=== PATIENT | male | born 1945 | race Caucasian/White ===

== ENCOUNTER 2017-04-08 08:49 | Outpatient (CLI) | payer MEDICARE, OTHER ==
[2017-04-08 13:08] LABS: BASOPHILS # (AUTO) 0.1 10^3/uL (0.0-0.1); EOSINOPHILS # (AUTO) 0.3 10^3/uL (0.0-0.7); EOSINOPHILS % (AUTO) 3.5 %; HCT - HEMATOCRIT 37.4 % (42.0-52.0); LYMPHOCYTES # (AUTO) 2.8 10^3/uL (1.5-3.5); LYMPHOCYTES % (AUTO) 34.7 %; MEAN CORPUSCULAR HEMOGLOBIN 31.7 pg (27.0-31.0); MEAN CORPUSCULAR HGB CONC 34.9 g/dL (32.0-36.0); MEAN CORPUSCULAR VOLUME 90.7 fL (80.0-94.0); MEAN PLATELET VOLUME 8.4 fL (7.4-11.4); MONOCYTES # (AUTO) 0.9 10^3/uL (0.0-1.0); MONOCYTES % (AUTO) 10.9 %; NEUTROPHILS % (AUTO) 49.9 %; NUCLEATED RED BLOOD CELLS AUTO 0.1 /100WBC; RED BLOOD COUNT 4.12 10^6/uL (4.70-6.10); RED CELL DISTRIBUTION WIDTH 12.6 % (12.0-15.0); UNCORRECTED WHITE BLOOD COUNT 7.9 x10^3/uL; WHITE BLOOD COUNT 7.9 x10^3/uL (4.8-10.8)
[2017-04-08 13:22] LABS: HEMOGLOBIN A1C 0.51 g/dL
[2017-04-08 13:54] LABS: ALBUMIN/GLOBULIN RATIO 1.6 (1.0-2.2); BILIRUBIN,TOTAL 0.8 mg/dL (0.2-1.0); BUN - BLOOD UREA NITROGEN 15 mg/dL (6-20); CALCIUM 9.1 mg/dL (8.5-10.3); CARBON DIOXIDE - CO2 25 mmol/L (21-32); CHLORIDE 102 mmol/L (101-111); CHOL/HDL RATIO 3.9 (<5.0); CHOLESTEROL 177 mg/dL; CREATININE 1.2 mg/dL (0.6-1.2); GFR - MDRD 60 (>89); GLUCOSE 116 mg/dL (70-100); HDL CHOLESTEROL 45 mg/dL; LDL/HDL RATIO 2.4 (<3.6); POTASSIUM 4.2 mmol/L (3.5-5.0); SODIUM 134 mmol/L (135-145); TOTAL PROTEIN 6.7 g/dL (6.7-8.2); TRIGLYCERIDES 132 mg/dL; VLDL CHOLESTEROL 26 mg/dL
== END 2017-04-08 08:50 ==
LOC: LAB.WCP 08:49
PROVIDERS: ATTEND Family Medicine
DX: I25.10 Atherosclerotic heart disease of native coronary artery without angina pectoris (principal); R73.01 Impaired fasting glucose; Z12.5 Encounter for screening for malignant neoplasm of prostate
CPT/HCPCS: 36415; 80053; 80061; 82043; 83036; 85025; G0103; 84153

== ENCOUNTER 2017-07-12 13:54 | Outpatient (CLI) | payer MEDICARE, OTHER ==
--- NOTE | 2017-07-12 17:47 | XRAY Report ---
DATE OF SERVICE: 07/12/2017 THREE VIEW RIGHT KNEE: 07/12/2017 CLINICAL INDICATION: Knee pain. FINDINGS: AP, lateral, sunrise views of the right knee demonstrate no evidence of fracture or dislocation. The joint spaces are preserved. No effusion is present. IMPRESSION: NORMAL RIGHT KNEE. TD: 07/12/2017 18:46
== END 2017-07-12 13:55 | disposition home or self-care (01) ==
LOC: DI 13:54
PROVIDERS: ATTEND Physician Assistant Medical
DX: M25.561 Pain in right knee (principal)

== ENCOUNTER 2017-09-20 09:13 | Outpatient (CLI) | payer MEDICARE, OTHER ==
--- NOTE | 2017-09-20 14:53 | MRI Report ---
EXAM: RIGHT KNEE MRI WITHOUT CONTRAST EXAM DATE: 09/20/2017 10:07 AM. CLINICAL HISTORY: Right anterior knee pain. Other synovitis and tenosynovitis, right knee. COMPARISON: None. TECHNIQUE: Multiplanar, multisequence T1-weighted and fluid-sensitive sequences of the knee without c ontrast. Other: None. FINDINGS: Bones: Small amount of subjacent marrow edema at the lateral patellar facet. 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 Some mild grade 2-3 chondromalacia at the medial compartment. Lateral compartment is spared. Medial Meniscus: The medial meniscus is intact. Lateral Meniscus: The lateral meniscus is intact. Cruciate Ligaments: The anterior and posterior cruciate ligaments are intact. Collateral Ligaments: The medial collateral and lateral collateral ligamentous structures are intact. Tendons: The quadriceps, patellar, semimembranosus, and popliteus tendons are unremarkable. Musculature: No edema or fatty atrophy. Other: No effusion. No popliteal cyst. No loose bodies. The medial and lateral retinacula are intact. There is a small amount of subcutaneous edema anterior to the patellar tendon. IMPRESSION: 1. Small amount of marrow edema at the lateral patellar facet, associated with some grade 3-4 chondro malacia. 2. Some grade 2-3 chondromalacia medial compartment, lateral compartment is spared. 3. Menisci, cruciates and collaterals are unremarkable. 4. Small amount of subcutaneous edema seen anterior to the patellar tendon. [facility] MUSCULOSKELETAL RADIOLOGY SECTION Referring Provider Line: [phone] SITE ID: [id number]
== END 2017-09-20 09:14 | disposition home or self-care (01) ==
LOC: DI 09:13
PROVIDERS: ATTEND Orthopaedic Surgery
DX: M94.261 Chondromalacia, right knee (principal)

== ENCOUNTER 2017-12-06 10:22 | Outpatient (CLI) | payer MEDICARE, OTHER | END 2017-12-06 10:23 | disposition critical access hospital (66) | LOC: EMS 10:22 | PROVIDERS: ATTEND Surgery | DX: R41.0 Disorientation, unspecified (principal); R42 Dizziness and giddiness; R11.0 Nausea | CPT/HCPCS: A0425; A0427 ==

== ENCOUNTER 2017-12-06 10:44 | Emergency (ER) | payer MEDICARE, OTHER ==
[2017-12-06] MEDS ORDERED: SODIUM CHLORIDE 0.9% 1,000 ML IV ONE ×2 (10:50→11:15)
--- NOTE | 2017-12-06 11:14 | ED Physician Documentation ---
History of Present Illness - Stated complaint Stated Complaint: WEAKNESS / CONFUSED - Additonal information Additional information: hx from pt this AM was very weak and wobbly feel to his knees when he tried to walk no injury denies fever denies SALES denies CP denies AP denies cough denies NVD denies blood in BM denies dysuria denies recent med changes or taking too many per EMS orthostatic and BP dropped from 130-80 they gave 1 L NS already Review of Systems Constitutional: denies: Fever, Chills Throat: denies: Sore throat Cardiac: denies: Chest pain / pressure Respiratory: denies: Dyspnea GI: denies: Abdominal Pain, Nausea, Vomiting, Diarrhea, Bloody / black stool : denies: Dysuria Neurologic: reports: Generalized weakness, Near syncope, Altered mental status ( was not making sense per SO). denies: Focal weakness, Numbness, Headache, Head injury Endocrine: denies: Easy bruising / bleeding Immunocompromised: denies: Immunocompromised PD PAST MEDICAL HISTORY - Past Medical History Past Medical History: Yes Cardiovascular: Hypertension, High cholesterol Respiratory: None Neuro: None Endocrine/Autoimmune: HyPOthyroidism GI: None : None HEENT: None Psych: Depression Musculoskeletal: None Derm: None - Past Surgical History Past Surgical History: No - Present Medications Home Medications: Ambulatory Orders Medication Instructions Recorded Confirmed Aspirin 81 mg PO DAILY 12/06/17 12/06/17 Cholecalciferol (Vitamin D3) 1,000 unit PO 12/06/17 [Vitamin D3] FLUoxetine [PROzac] 20 mg PO DAILY 12/06/17 12/06/17 Levothyroxine [Synthroid] 75 mcg PO QDAC 12/06/17 12/06/17 Lisinopril 2.5 mg PO 12/06/17 Loratadine 10 mg PO 12/06/17 Metoprolol Tartrate 50 mg PO 12/06/17 Multivitamin [Multivitamins] 12/06/17 Oil Of Oregano 1 tab ORAL 12/06/17 [place]-3/Dha/Epa/Fish Oil [Fish Oil 1 each PO 12/06/17 1,000 mg Softgel] Saw [place] Fruit [Saw [place]] 550 mg PO 12/06/17 Simvastatin 40 mg PO 12/06/17 Ubidecarenone [Co Q-10] 200 mg PO 12/06/17 - Allergies Allergies/Adverse Reactions: Allergies Allergy/AdvReac Type Severity Reaction Status Date / Time No Known Drug Allergies Allergy Verified 12/06/17 10:54 - Social History Does the pt smoke?: No Smoking Status: Never smoker Does the pt drink ETOH?: Yes Does the pt have substance abuse?: No - Immunizations Immunizations are current?: No Immunizations: TDAP >10years/unknown - POLST Patient has POLST: No PD ED PE NORMAL - Vitals Vital signs reviewed: Yes - General General: Alert and oriented X 3 - HEENT HEENT: PERRL - Neck Neck: Supple, no meningeal sign - Cardiac Cardiac: RRR - Respiratory Respiratory: No respiratory distress, Clear bilaterally - Abdomen Abdomen: Soft, Non tender - Derm Derm: Normal color - Extremities Extremities: No deformity - Neuro Neuro: Alert and oriented X 3, 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, No motor deficit, No sensory deficit, Normal speech, Other (NIHSS zero) Results - Vitals Vitals: Vital Signs - 24 hr 12/06/17 12/06/17 12/06/17 10:52 11:37 12:03 Temperature 36.7 C Heart Rate 59 L 85 Heart Rate [ 66 Sitting] Heart Rate [ 63 Standing] Heart Rate [ 62 Supine] Respiratory 16 16 Rate Blood Pressure 142/69 H 130/71 Blood Pressure 130/67 [Sitting] Blood Pressure 125/67 [Standing] Blood Pressure 121/83 H [Supine] O2 Saturation 95 97 12/06/17 14:01 Temperature Heart Rate 67 Heart Rate [ Sitting] Heart Rate [ Standing] Heart Rate [ Supine] Respiratory 16 Rate Blood Pressure 132/77 H Blood Pressure [Sitting] Blood Pressure [Standing] Blood Pressure [Supine] O2 Saturation 97 Oxygen O2 Source Room air - EKG (time done) 1058 Rate: Rate (enter#) (61) Rhythm: NSR [place]: Normal Intervals: Normal MD Ischemia: Normal ST segments - Labs Labs: Laboratory Tests 12/06/17 12/06/17 12/06/17 11:00 11:25 11:25 WBC 6.0 RBC 3.93 L Hgb 12.8 L Hct 36.8 L MCV 93.5 MCH 32.5 H MCHC 34.8 RDW 12.5 Plt Count 215 MPV 7.7 Neut # (Auto) 3.6 Lymph # (Auto) 1.6 [place] # (Auto) 0.5 Eos # (Auto) 0.1 Baso # (Auto) 0.0 Absolute Nucleated RBC 0.00 Nucleated RBC % 0.0 Sodium 131 L Potassium 4.5 Chloride 101 Carbon Dioxide 25 Anion Gap 5.0 L BUN 14 Creatinine 1.4 H Estimated GFR (MDRD) 50 L Glucose 128 H Lactic Acid Calcium 8.5 Total Bilirubin 1.0 AST 32 ALT 30 Alkaline Phosphatase 45 Troponin I Total Protein 6.8 Albumin 3.7 Globulin 3.1 Albumin/Globulin Ratio 1.2 Lipase 43 Urine Color YELLOW Urine Clarity CLEAR Urine pH 8.0 H Ur Specific [place] 1.010 Urine Protein TRACE Urine Glucose (UA) NEGATIVE Urine Ketones NEGATIVE Urine Occult Blood NEGATIVE Urine Nitrite NEGATIVE Urine Bilirubin NEGATIVE Urine Urobilinogen 0.2 (NORMAL) Ur Leukocyte Esterase NEGATIVE Ur Microscopic Review NOT INDICATED Urine Culture Comments NOT INDICATED 12/06/17 12/06/17 11:25 11:25 WBC RBC Hgb Hct MCV MCH MCHC RDW Plt Count MPV Neut # (Auto) Lymph # (Auto) [place] # (Auto) Eos # (Auto) Baso # (Auto) Absolute Nucleated RBC Nucleated RBC % Sodium Potassium Chloride Carbon Dioxide Anion Gap BUN Creatinine Estimated GFR (MDRD) Glucose Lactic Acid 1.5 Calcium Total Bilirubin AST ALT Alkaline Phosphatase Troponin I < 0.04 Total Protein Albumin Globulin Albumin/Globulin Ratio Lipase Urine Color Urine Clarity Urine pH Ur Specific [place] Urine Protein Urine Glucose (UA) Urine Ketones Urine Occult Blood Urine Nitrite Urine Bilirubin Urine Urobilinogen Ur Leukocyte Esterase Ur Microscopic Review Urine Culture Comments - Rads (name of study) CTH Radiology: See rad report (old lacunar infarct, no mass shift bleed) PD MEDICAL DECISION MAKING - ED course ED course: 1130 AM pt developed SALES and vision changes / hard to see from L eye but not a field cut ordered CTH (neg) sx self resolved EKG and trop s ischemia CTHH neg not anemic nl lytes lungs clear no cough so doubt pna UA neg for infection pt states no med changes was orthostatic so gave IVF pt better after IVF, not orthostatic and feels better will dc - Sepsis Event Vital Signs: Vital Signs - 24 hr 12/06/17 12/06/17 12/06/17 10:52 11:37 12:03 Temperature 36.7 C Heart Rate 59 L 85 Heart Rate [ 66 Sitting] Heart Rate [ 63 Standing] Heart Rate [ 62 Supine] Respiratory 16 16 Rate Blood Pressure 142/69 H 130/71 Blood Pressure 130/67 [Sitting] Blood Pressure 125/67 [Standing] Blood Pressure 121/83 H [Supine] O2 Saturation 95 97 12/06/17 14:01 Temperature Heart Rate 67 Heart Rate [ Sitting] Heart Rate [ Standing] Heart Rate [ Supine] Respiratory 16 Rate Blood Pressure 132/77 H Blood Pressure [Sitting] Blood Pressure [Standing] Blood Pressure [Supine] O2 Saturation 97 Oxygen O2 Source Room air Departure - Departure Disposition: Home, Self Care Clinical Impression: Orthostatic hypotension Condition: Good Instructions: ED Hypotension Orthostatic Follow-Up: Sreekanth Shah DO [Primary Care Provider] - Comments: Your work up was very reassuring The CT of your brain showed no acute process Your heart checked out OK Your labs were fine - mildly anemic but the same as your prior results, your sodium was slightly low but not enough to make you feel so weak, and you have some renal insufficiency which is probably due to you being dehydrated And you felt better after IV fluids I suspect you were dehydrated - it has been very hot recently and you need to drink a lot of fluid I think it is safe for you to go home Please rest and drink fluids Follow up with your PMD Saturday for a recheck blood pressure and labs and to see how you are doing Return if worse or new symptoms develop over the weekend
[2017-12-06 11:36] LABS: BASOPHILS % (AUTO) 0.8 %; EOSINOPHILS # (AUTO) 0.1 10^3/uL (0.0-0.7); EOSINOPHILS % (AUTO) 2.4 %; HGB - HEMOGLOBIN 12.8 g/dL (14.0-18.0); LYMPHOCYTES # (AUTO) 1.6 10^3/uL (1.5-3.5); LYMPHOCYTES % (AUTO) 27.3 %; MEAN CORPUSCULAR HEMOGLOBIN 32.5 pg (27.0-31.0); MEAN CORPUSCULAR HGB CONC 34.8 g/dL (32.0-36.0); MEAN CORPUSCULAR VOLUME 93.5 fL (80.0-94.0); MEAN PLATELET VOLUME 7.7 fL (7.4-11.4); MONOCYTES # (AUTO) 0.5 10^3/uL (0.0-1.0); MONOCYTES % (AUTO) 8.5 %; NEUTROPHILS # (AUTO) 3.6 10^3/uL (1.5-6.6); PLT - PLATELET COUNT 215 10^3/uL (130-450); RED BLOOD COUNT 3.93 10^6/uL (4.70-6.10); RED CELL DISTRIBUTION WIDTH 12.5 % (12.0-15.0)
[2017-12-06 11:50] LABS: ALBUMIN 3.7 g/dL (3.2-5.5); ALBUMIN/GLOBULIN RATIO 1.2 (1.0-2.2); CALCIUM 8.5 mg/dL (8.5-10.3); CREATININE 1.4 mg/dL (0.6-1.2); TOTAL PROTEIN 6.8 g/dL (6.7-8.2)
[2017-12-06 12:05] LABS: BILIRUBIN,URINE NEGATIVE (NEGATIVE); GLUCOSE, URINE (UA) NEGATIVE (NEGATIVE); KETONES,URINE (UA) NEGATIVE (NEGATIVE); LEUKOCYTE ESTERASE, URINE NEGATIVE (NEGATIVE); NITRITE,URINE NEGATIVE (NEGATIVE); OCCULT BLOOD,URINE NEGATIVE (NEGATIVE); PROTEIN,URINE TRACE mg/dL (NEGATIVE); UROBILINOGEN,URINE 0.2 (NORMAL) E.U./dL (NORMAL)
[2017-12-06 12:19] LABS: CLARITY,URINE CLEAR (CLEAR)
--- NOTE | 2017-12-06 13:17 | CT Report ---
Procedure Date: 12/06/2017 Accession Number: [id number] / [id number] Procedure: CT - Head W/O CPT Code: FULL RESULT: EXAM: CT HEAD EXAM DATE: 12/06/2017 01:00 PM. CLINICAL HISTORY: SALES vision changes near syncope. COMPARISON: None. TECHNIQUE: Multiaxial CT images were obtained from the foramen magnum to the vertex. Reformats: Coronal. IV contrast: None. In accordance with CT protocol optimization, one or more of the following dose reduction techniques were utilized for this exam: automated exposure control, adjustment of mA and/or KV based on patient size, or use of iterative reconstructive technique. FINDINGS: Parenchyma: There is a left basal ganglia round hypodensity. Negative for acute intracranial hemorrhage. There is no mass effect or midline shift. Extraaxial Spaces: Normal for age. No subdural or epidural collections identified. Ventricles: Normal in size and position. Sinuses and Orbits: Imaged paranasal sinuses, orbits, and mastoids show no significant abnormality. Bones: No evidence of fracture or calvarial defect. Other: None. IMPRESSION: 1. Probable old left basal ganglia lacunar infarct. 2. Negative for acute hemorrhage, mass effect or localizing edema. [facility]
[2017-12-06 14:02] VITALS: BP 132/77
== END 2017-12-06 15:30 | disposition home or self-care (01) ==
LOC: EDUNIT# → ED 10:44
DX: I95.1 Orthostatic hypotension (principal); E86.0 Dehydration; I10 Essential (primary) hypertension; E78.00 Pure hypercholesterolemia, unspecified; E03.9 Hypothyroidism, unspecified; R73.01 Impaired fasting glucose; I25.10 Atherosclerotic heart disease of native coronary artery without angina pectoris; E78.5 Hyperlipidemia, unspecified; N52.9 Male erectile dysfunction, unspecified
CPT/HCPCS: 36415; 70450; 80053; 80061; 81001; 81003; 83036; 83605; 83690; 84443; 84484; 85025; 87040; 87086; 93005; 96360; 96361; 99284

== ENCOUNTER 2017-12-06 11:46 | Outpatient (CLI) | payer MEDICARE, OTHER ==
[2017-12-06 12:21] LABS: CHOL/HDL RATIO 6.5 (<5.0); CHOLESTEROL 222 mg/dL; HDL CHOLESTEROL 34 mg/dL; LDL CHOLESTEROL,CALCULATED 142 mg/dL; LDL/HDL RATIO 4.2 (<3.6); VLDL CHOLESTEROL 46 mg/dL
[2017-12-06 12:43] LABS: HB2 TOTAL 13.4 g/dL; HEMOGLOBIN A1C 0.57 g/dL
== END 2017-12-06 11:47 | disposition home or self-care (01) ==
LOC: LAB 11:46
PROVIDERS: ATTEND Family Medicine
DX: R73.01 Impaired fasting glucose (principal); I25.10 Atherosclerotic heart disease of native coronary artery without angina pectoris; E03.9 Hypothyroidism, unspecified; E78.5 Hyperlipidemia, unspecified; N52.9 Male erectile dysfunction, unspecified
CPT/HCPCS: 36415; 80061; 83036; 83721; 84153; 84443

== ENCOUNTER 2017-12-17 09:34 | Outpatient (CLI) | payer MEDICARE, OTHER ==
--- NOTE | 2017-12-17 22:14 | MRI Report ---
Procedure Date: 12/17/2017 Accession Number: [id number] / [id number] Procedure: MRI - Brain W/O CPT Code: FULL RESULT: EXAM: MRI BRAIN WITHOUT CONTRAST EXAM DATE: 12/17/2017 11:03 AM. CLINICAL HISTORY: Previously presented with headaches, vision changes and near syncope. COMPARISON: CT head 12/06/2017. TECHNIQUE: Multiplanar, multisequence T1-weighted and fluid-sensitive MR sequences of the brain were performed. Sequences optimized for routine evaluation. Other: None. IV Contrast: None. FINDINGS: Diffusion weighted sequence shows no evidence for acute infarct. There is no mass, mass effect, midline shift or abnormal extraaxial fluid collection. Size and configuration of the ventricles are normal. There is chronic infarct in the periventricular left frontal lobe, left berrios radiata adjacent to the body of the left caudate, otherwise signal within the cortex and white matter appears unremarkable. Nonspecific T2 hyperintensity seen in the periventricular right centrum semiovale. Brainstem and cerebellum appear normal. Major intracranial flow voids appear normal. Globes, orbits, optic nerve sheath complex, optic chiasm, pituitary, cavernous sinus and Meckel's cave appear normal. Paranasal sinuses and mastoid air cells appear well aerated. Marrow signal and extracranial soft tissue appear normal. Craniocervical junction and visualized upper cervical cord appear unremarkable. IMPRESSION: 1. No acute infarct, intracranial hemorrhage, midline shift or hydrocephalus. 2. Chronic lacunar type infarct in the periventricular left frontal lobe and left berrios radiata. 3. Mild diffuse cerebral volume loss. [facility]
== END 2017-12-17 09:35 | disposition home or self-care (01) ==
LOC: DI 09:34
PROVIDERS: ATTEND Family Medicine
DX: G45.9 Transient cerebral ischemic attack, unspecified (principal)
CPT/HCPCS: 70551

== ENCOUNTER 2017-12-19 18:49 | Outpatient (CLI) | payer MEDICARE, OTHER ==
--- NOTE | 2017-12-20 08:04 | Ultrasound Report ---
Procedure Date: 12/19/2017 Accession Number: [id number] / [id number] Procedure: US - Carotid Doppler Complete CPT Code: FULL RESULT: EXAM: BILATERAL CAROTID AND VERTEBRAL ARTERY DUPLEX DOPPLER ULTRASOUND: EXAM DATE: 12/19/2017 07:48 PM CLINICAL HISTORY: TIA. COMPARISON: None. TECHNIQUE: Ramos-scale imaging, color Doppler, and duplex spectral Doppler were used to evaluate the carotid and vertebral arteries bilaterally. Static images were obtained. FINDINGS: Right common carotid artery intimal hyperplasia. Noncalcified plaque proximal to mid. Moderate amount of plaque at the right bulb with narrowing of the origin of the right ECA. Calcified and noncalcified plaque in the right ICA. The peak systolic velocities on the right side are not significantly elevated. Left common carotid artery has intimal hyperplasia. A large amount of calcified plaque is seen within the proximal to mid CCA. Calcified and noncalcified plaque in the distal CCA. Calcified plaque at the bulb. Calcified plaque at the origin of the left ECA. Noncalcified plaque proximal left ICA.. Peak systolic velocities are not significantly elevated Normal antegrade flow is present in bilateral vertebral arteries. VELOCITIES (cm/sec): Right: RCCA Prox: PSV 64.36 cm/sec. RCCA Dist: PSV 52.3 cm/sec, EDV 28 cm/sec. RECA: PSV 102 cm/sec. R Bulb: PSV 45.5 cm/sec, EDV 3 cm/sec, ICA/CCA ratio 0.9. JUS Prox: PSV 43.8 cm/sec, EDV 11.5 cm/sec, ICA/CCA ratio 0.8. JUS Mid: PSV 63.3 cm/sec, EDV 14 cm/sec, ICA/CCA ratio 1.2. JUS Dist: PSV 76.5 cm/sec, EDV 22.1 cm/sec, ICA/CCA ratio 1.5. RVA: PSV 41.8 cm/sec. RVA flow direction: Antegrade. Left: LCCA Prox: PSV 77.9 cm/sec. LCCA Dist: PSV 64.4 cm/sec, EDV 9.7 cm/sec. LECA: PSV 93.3 cm/sec. L Bulb: PSV 61.7 cm/sec, EDV 12.4 cm/sec, ICA/CCA ratio 1.0. LICA Prox: PSV 67.2 cm/sec, EDV 17.9 cm/sec, ICA/CCA ratio 1.0. LICA Mid: PSV 80.7 cm/sec, EDV 19 cm/sec, ICA/CCA ratio 1.3. LICA Dist: PSV 86.3 cm/sec, EDV 23.5 cm/sec, ICA/CCA ratio 1.3. LVA: PSV 78.4 cm/sec. LVA flow direction: Antegrade. ICA diameter stenosis: Right: <50% by velocity and <70% by NASCET criteria. Left: <50% by velocity and <70% by NASCET criteria. IMPRESSION: 1. Large amount of calcified and noncalcified plaque in the left common carotid artery extending into ECA and ICA. Recommend CTA or MRA for further evaluation. 2. In the right carotid artery there are no elevated carotid artery velocities to suggest hemodynamically significant stenosis. 3. In the left carotid artery there are no elevated carotid artery velocities to suggest hemodynamically significant stenosis. 4. Normal antegrade flow is present in bilateral vertebral arteries. [facility]
== END 2017-12-19 18:50 | disposition home or self-care (01) ==
LOC: DI 18:49
PROVIDERS: ATTEND Family Medicine
DX: G45.9 Transient cerebral ischemic attack, unspecified (principal)
CPT/HCPCS: 93880

== ENCOUNTER 2017-12-26 12:18 | Outpatient (CLI) | payer MEDICARE, OTHER ==
[2017-12-26] MEDS ORDERED: IOPAMIDOL-300 100 ML VIAL ONE (12:33)
[2017-12-26] MEDS ORDERED: IOPAMIDOL-300 100 ML VIAL IVP ONE (12:51)
--- NOTE | 2017-12-27 16:05 | CT Report ---
Procedure Date: 12/26/2017 Accession Number: [id number] / [id number] Procedure: CT - Neck Angio CPT Code: FULL RESULT: EXAM: CT ANGIOGRAM NECK EXAM DATE: 12/26/2017 12:41 PM. CLINICAL HISTORY: Carotid arterial disease, TIA. COMPARISON: No prior CTA. TECHNIQUE: Routine axial helical imaging was performed from the skull base through the aortic arch. Reconstructions: Routine multiplanar 3D MIP reconstructions. IV Contrast: ISOVUE 300 80mL. Evaluation of arterial stenosis is based on a NASCET method of measurement. In accordance with CT protocol optimization, one or more of the following dose reduction techniques were utilized for this exam: automated exposure control, adjustment of mA and/or KV based on patient size, or use of iterative reconstructive technique. FINDINGS: No focal flow-limiting stenosis at the origins of the great vessels at the top of the aortic arch. No flow-limiting proximal left subclavian artery stenosis. There may be mild stenosis of the proximally tortuous right subclavian artery. Focal atherosclerotic plaque is present at the right cervical vertebral artery origin. Associated luminal stenosis is mild. Otherwise unremarkable right cervical vertebral artery. Minimal to mild origin stenosis of the left cervical vertebral artery is also present where there is a small amount of focal atherosclerotic calcification, more distally this vessel appears unremarkable in the neck. Both cervical carotid arteries show scattered hard and soft plaque involving the common carotid and internal carotid segments and at the carotid bifurcations. There is, however, no evidence for acute abnormality or focal flow-limiting stenosis. No evidence for aneurysm or dissection flap. No intracranial vertebrobasilar insufficiency. 2 cm wide perforation of the anterior nasal septum. Minimal to mild paranasal sinus mucosal thickening. IMPRESSION: 1. Multifocal relatively mild atherosclerotic disease of the cervical carotid arteries without evidence for acute abnormality or flow-limiting stenosis. 2. Minimal to mild atherosclerotic stenosis at the origins of the cervical vertebral arteries. No acute abnormality, flow-limiting stenosis or intracranial vertebrobasilar insufficiency. 3. Minimal multifocal paranasal sinus mucosal thickening and anterior perforation of the nasal septum. [facility]
== END 2017-12-26 12:19 | disposition home or self-care (01) ==
LOC: DI 12:18
PROVIDERS: ATTEND Family Medicine
DX: G45.9 Transient cerebral ischemic attack, unspecified (principal); I77.9 Disorder of arteries and arterioles, unspecified
CPT/HCPCS: 70498; Q9967

== ENCOUNTER 2018-04-21 10:25 | Outpatient (CLI) | payer MEDICARE, OTHER | END 2018-04-21 10:26 | disposition home or self-care (01) | LOC: SC 10:25 | PROVIDERS: ATTEND Internal Medicine Pulmonary Disease | DX: G47.10 Hypersomnia, unspecified (principal); R06.83 Snoring; G47.8 Other sleep disorders | CPT/HCPCS: 99203; G0463; 99212 ==

== ENCOUNTER 2018-06-01 19:30 | Outpatient (CLI) | payer MEDICARE, OTHER | END 2018-06-01 19:31 | disposition home or self-care (01) | LOC: SC 19:30 | PROVIDERS: ATTEND Internal Medicine Pulmonary Disease | DX: G47.33 Obstructive sleep apnea (adult) (pediatric) (principal); G47.61 Periodic limb movement disorder | CPT/HCPCS: 95810 ==

== ENCOUNTER 2018-07-14 10:09 | Outpatient (CLI) | payer MEDICARE, OTHER | END 2018-07-14 10:10 | disposition home or self-care (01) | LOC: SC 10:09 | PROVIDERS: ATTEND Internal Medicine Pulmonary Disease | DX: G47.33 Obstructive sleep apnea (adult) (pediatric) (principal); G47.61 Periodic limb movement disorder | CPT/HCPCS: 99213; G0463; 99212 ==

== ENCOUNTER 2018-08-07 07:09 | Day surgery (SDC) | payer MEDICARE, OTHER ==
[2018-08-07] MEDS ORDERED: LACTATED RINGERS 1,000 ML IV ONE (08:03)
[2018-08-07] MEDS ORDERED: fentaNYL 250 MCG/5 ML VIAL IVP ONE (09:13)
[2018-08-07] MEDS ORDERED: MIDAZOLAM 2 MG/2 ML VIAL IVP ONE (09:13)
[2018-08-07 09:52] VITALS: BP 124/70
--- NOTE | 2018-08-07 10:17 | OPERATIVE REPORT ---
DATE OF SERVICE: 08/07/2018 Physician: Súal Guzman MD PREOPERATIVE DIAGNOSIS: Constipation. POSTOPERATIVE DIAGNOSIS: Normal colonoscopy. INDICATIONS FOR PROCEDURE: Patient is a 72-year-old man who presented complaining of a couple of months of constipation and decreased caliber stool. PROCEDURE IN DETAIL: The risks and benefits were explained. The patient agreed to the procedure. He was taken to the operating room, given sedation. Timeout was performed, and everyone in the room agreed to the procedure. We began by inserting a well-lubricated colonoscope into the anus, advanced into the cecum without difficulty. The appendiceal orifice was identified. The scope was then slowly withdrawn while insufflating the colon. No abnormalities were seen throughout the colon's entirety. Retroflexion was performed at the anal verge, and no abnormalities were seen there either. The colonoscope then completely withdrawn and procedure terminated. The patient was taken to recovery in stable condition. ESTIMATED BLOOD LOSS: Zero. COMPLICATIONS: None. SPECIMENS: None. PLAN: Repeat colonoscopy in 10 years. TD: 08/07/2018 09:24 [email or web address]
== END 2018-08-07 07:10 | disposition home or self-care (01) ==
LOC: SDS 07:09
PROVIDERS: ATTEND Surgery
PROC: 0DJD8ZZ Inspection of Lower Intestinal Tract, Via Natural or Artificial Opening Endoscopic (ICD-10-PCS; principal; 2018-08-07 08:15)
DX: K59.00 Constipation, unspecified (principal)
CPT/HCPCS: 45378; J3010; J7120

== ENCOUNTER 2018-09-16 12:56 | Outpatient (CLI) | payer MEDICARE, OTHER | END 2018-09-16 12:57 | disposition home or self-care (01) | LOC: SC 12:56 | PROVIDERS: ATTEND Internal Medicine Pulmonary Disease | DX: G47.33 Obstructive sleep apnea (adult) (pediatric) (principal) | CPT/HCPCS: 99213; G0463; 99212 ==

== ENCOUNTER 2018-11-19 21:21 | Emergency (ER) | payer MEDICARE, OTHER ==
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
--- NOTE | 2018-11-19 22:53 | XRAY Report ---
Reason: chest pain, dyspnea Procedure Date: 11/19/2018 Accession Number: [id number] / [id number] Procedure: XR - Chest 2 View X-Ray CPT Code: 06606 FULL RESULT: EXAM: CHEST RADIOGRAPHY EXAM DATE: 11/19/2018 10:24 PM. CLINICAL HISTORY: Chest pain, dyspnea. COMPARISON: CHEST 2 VIEW PA/LAT 09/24/2016 8:58 AM. TECHNIQUE: 2 views. FINDINGS: Lungs/Pleura: No localized infiltrate, consolidation, effusion, or pneumothorax. Mediastinum: Heart and mediastinal contours are unremarkable. Upper lobe vessels not distended. Other: Degenerative changes. IMPRESSION: No acute disease. RADIA
[2018-11-19 23:02] LABS: BASOPHILS % (AUTO) 0.3 %; EOSINOPHILS # (AUTO) 0.2 10^3/uL (0.0-0.7); EOSINOPHILS % (AUTO) 1.7 %; HGB - HEMOGLOBIN 12.5 g/dL (14.0-18.0); LYMPHOCYTES # (AUTO) 2.6 10^3/uL (1.5-3.5); LYMPHOCYTES % (AUTO) 22.9 %; MEAN CORPUSCULAR HEMOGLOBIN 31.9 pg (27.0-31.0); MEAN CORPUSCULAR HGB CONC 35.1 g/dL (32.0-36.0); MEAN CORPUSCULAR VOLUME 90.9 fL (80.0-94.0); MEAN PLATELET VOLUME 7.7 fL (7.4-11.4); MONOCYTES # (AUTO) 1.4 10^3/uL (0.0-1.0); MONOCYTES % (AUTO) 12.1 %; NEUTROPHILS # (AUTO) 7.3 10^3/uL (1.5-6.6); PLT - PLATELET COUNT 235 10^3/uL (130-450); RED BLOOD COUNT 3.92 10^6/uL (4.70-6.10); RED CELL DISTRIBUTION WIDTH 12.6 % (12.0-15.0); WHITE BLOOD COUNT 11.5 x10^3/uL (4.8-10.8)
[2018-11-19 23:12] LABS: CALCIUM 8.8 mg/dL (8.5-10.3); CREATININE 1.2 mg/dL (0.6-1.2)
[2018-11-20 00:07] VITALS: BP 146/76
== END 2018-11-20 00:10 | disposition home or self-care (01) ==
LOC: ED 21:21
DX: R07.9 Chest pain, unspecified (principal); I10 Essential (primary) hypertension
CPT/HCPCS: 36415; 71046; 80048; 84484; 85025; 93005; 99283; 99284

== ENCOUNTER 2018-12-16 11:27 | Observation (INO) | payer MEDICARE, OTHER ==
[2018-12-16 11:54] LABS: BASOPHILS # (AUTO) 0.1 10^3/uL (0.0-0.1); BASOPHILS % (AUTO) 0.6 %; EOSINOPHILS # (AUTO) 0.4 10^3/uL (0.0-0.7); EOSINOPHILS % (AUTO) 4.9 %; HGB - HEMOGLOBIN 12.5 g/dL (14.0-18.0); LYMPHOCYTES # (AUTO) 2.7 10^3/uL (1.5-3.5); LYMPHOCYTES % (AUTO) 32.7 %; MEAN CORPUSCULAR HEMOGLOBIN 31.8 pg (27.0-31.0); MEAN CORPUSCULAR HGB CONC 34.8 g/dL (32.0-36.0); MEAN CORPUSCULAR VOLUME 91.3 fL (80.0-94.0); MEAN PLATELET VOLUME 9.6 fL (7.4-11.4); MONOCYTES % (AUTO) 11.6 %; NEUTROPHILS # (AUTO) 4.2 10^3/uL (1.5-6.6); NEUTROPHILS % (AUTO) 49.7 %; PLT - PLATELET COUNT 249 10^3/uL (130-450); RED BLOOD COUNT 3.93 10^6/uL (4.70-6.10); WHITE BLOOD COUNT 8.4 x10^3/uL (4.8-10.8)
[2018-12-16 12:07] LABS: ALBUMIN 4.2 g/dL (3.2-5.5); ALBUMIN/GLOBULIN RATIO 1.6 (1.0-2.2); BILIRUBIN,TOTAL 0.8 mg/dL (0.2-1.0); CREATININE 1.3 mg/dL (0.6-1.2); TOTAL PROTEIN 6.8 g/dL (6.7-8.2)
--- NOTE | 2018-12-16 12:38 | CT Report ---
Reason: L side numbness Procedure Date: 12/16/2018 Accession Number: [id number] / [id number] Procedure: CT - HEAD WO CPT Code: FULL RESULT: EXAM: CT HEAD EXAM DATE: 12/16/2018 12:14 PM. CLINICAL HISTORY: L side numbness. Duration 1.5 hours. COMPARISON: NECK ANGIO 12/26/2017 12:36 PM . TECHNIQUE: Multiaxial CT images were obtained from the foramen magnum to the vertex. Reformats: Sagittal and coronal. IV contrast: None. In accordance with CT protocol optimization, one or more of the following dose reduction techniques were utilized for this exam: automated exposure control, adjustment of mA and/or KV based on patient size, or use of iterative reconstructive technique. FINDINGS: Parenchyma: No intraparenchymal hemorrhage. No evidence of mass, midline shift, or CT findings of acute infarction. Ramos-white differentiation is distinct. Diffuse chronic microangiopathic white matter changes are evident. 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 Extraaxial Spaces: Normal for age. No subdural or epidural collections identified. Ventricles: The ventricles and cortical sulci are enlarged, consistent with age-related tissue loss. Sinuses and orbits: Imaged paranasal sinuses, orbits, and mastoids show no significant abnormality. Bones: No evidence of fracture or calvarial defect. Other: None. IMPRESSION: 1. Generalized age-related cortical atrophic changes without evidence of acute intracranial abnormality. 2. 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 If there is clinical indication to further assess, consider MRI. RADIA
[2018-12-16 13:54] LABS: BILIRUBIN,URINE NEGATIVE (NEGATIVE); CLARITY,URINE CLEAR (CLEAR); GLUCOSE, URINE (UA) NEGATIVE (NEGATIVE); KETONES,URINE (UA) NEGATIVE (NEGATIVE); LEUKOCYTE ESTERASE, URINE NEGATIVE (NEGATIVE); NITRITE,URINE NEGATIVE (NEGATIVE); OCCULT BLOOD,URINE NEGATIVE (NEGATIVE); PH,URINE 6.5 PH (5.0-7.5); PROTEIN,URINE NEGATIVE (NEGATIVE); UROBILINOGEN,URINE 0.2 (NORMAL) E.U./dL (NORMAL)
--- NOTE | 2018-12-16 14:03 | ED Physician Documentation ---
PD HPI FOCAL NEURO - Stated complaint Stated Complaint: L SIDE NUMBNESS - Chief complaint Chief Complaint: General - History obtained from History obtained from: Patient, Family - History of Present Illness Timing - onset: Today Timing - duration: Minutes Timing - details: Abrupt onset, Intermittant Severity of deficit: Moderate Numbness: Face, Hand, Leg, Left Associated symptoms: No: Headache, Nausea / vomiting, Seizure Contributing factors: negative: Anticoagulated, Atrial fibrillation Baseline status: positive: A&OX3, ambulatory, indep Similar symptoms before: No diagnosis Recently seen: Not recently seen - Additional information Additional information: 73-year-old male with a history of prior lacunar infarct has developed some left-sided numbness and possibly weakness that has been transient lasting minutes and seems to be related to exertion. He states that his symptoms are resolved now and he feels that if he were to get up and walk he could get the symptoms to come back on. He has noted episodes x6 today. He gives a history of coronary angina that is medically treated with lisinopril and metoprolol. He has had success with this for 20 years. He states that the only time that he usually gets any symptoms of angina now are when he is very stressed. He does state that there is stress related to his work at the [employer]. Review of Systems Constitutional: denies: Fever Eyes: denies: Decreased vision Ears: denies: Ear pain Nose: denies: Congestion Throat: denies: Sore throat Cardiac: denies: Chest pain / pressure, Palpitations Respiratory: denies: Dyspnea GI: denies: Abdominal Pain, Nausea, Vomiting : denies: Dysuria, Frequency Skin: denies: Rash Musculoskeletal: denies: Neck pain, Back pain, Extremity pain Neurologic: reports: Focal weakness, Numbness. denies: Generalized weakness, Difficulty speaking, Near syncope, Confused, Headache, Head injury PD PAST MEDICAL HISTORY - Past Medical History Past Medical History: Yes Cardiovascular: Hypertension, High cholesterol Respiratory: None Neuro: None Endocrine/Autoimmune: HyPOthyroidism GI: None : None HEENT: None Psych: Depression Musculoskeletal: None Derm: None Other Past Medical History: veins on right side of heart are too small, giving pt angina. - Past Surgical History Past Surgical History: Yes Ortho: Arthroscopic surgery - Present Medications Home Medications: Ambulatory Orders Medication Instructions Recorded Confirmed FLUoxetine [PROzac] 20 mg PO DAILY 12/06/17 08/07/18 Levothyroxine [Synthroid] 75 mcg PO QDAC 12/06/17 08/07/18 RX: Aspirin 81 mg PO DAILY 12/06/17 08/07/18 RX: Loratadine 10 mg PO DAILY 12/06/17 08/07/18 RX: Metoprolol Tartrate 25 mg PO BID 12/06/17 08/07/18 RX: Simvastatin 40 mg PO QPM 12/06/17 08/07/18 Saw [place] Fruit [Saw [place]] 550 mg PO DAILY 12/06/17 08/07/18 Ubidecarenone [Co Q-10] 200 mg PO DAILY 12/06/17 08/07/18 Cyanocobalamin (Vitamin B-12) 250 mcg PO DAILY 08/06/18 08/07/18 [Vitamin B-12 (100mcg tab)] Diclofenac Sodium [Voltaren] 100 gm TP PRN PRN 08/06/18 08/06/18 Kelp Tablet 1 tab PO DAILY 08/06/18 Losartan [Cozaar] 12.5 mg PO DAILY 08/06/18 08/07/18 Nitroglycerin [Nitrostat] 0.4 mg SL Q5MIN PRN 08/06/18 08/06/18 RX: Ibuprofen 200 - 400 mg PO TID PRN 08/06/18 08/07/18 RX: Omeprazole 20 mg PO DAILY PRN 08/06/18 08/06/18 Tamsulosin [Flomax] 0.4 mg PO DAILY 08/06/18 08/07/18 RX: Nitroglycerin 0.4 mg SL ONCE PRN #20 tab.subl 11/20/18 - Allergies Allergies/Adverse Reactions: Allergies Allergy/AdvReac Type Severity Reaction Status Date / Time lisinopril Allergy cough Verified 12/16/18 11:35 - Social History Does the pt smoke?: No Smoking Status: Former smoker Does the pt drink ETOH?: No Does the pt have substance abuse?: No - Immunizations Immunizations are current?: No Immunizations: TDAP >10years/unknown - POLST Patient has POLST: No PD ED PE NORMAL - Vitals Vital signs reviewed: Yes (hypertensive ) - General General: Alert and oriented X 3, No acute distress, Well developed/nourished - HEENT HEENT: Atraumatic, PERRL, EOMI, Ears normal, Moist mucous membranes, Pharynx benign, Dentition benign - Neck Neck: Supple, no meningeal sign, No bony TTP - Cardiac Cardiac: RRR, Other (1/6 holosystolic murmer at LSB) - Respiratory Respiratory: No respiratory distress, Clear bilaterally - Abdomen Abdomen: Soft, Non tender - Back Back: No CVA TTP, No spinal TTP - Derm Derm: Normal color, Warm and dry, No rash - Extremities Extremities: No deformity, No edema - Neuro Neuro: Alert and oriented X 3, pipe jeeper 2-12 intact, No motor deficit, No sensory deficit, Normal speech Eye Opening: Spontaneous Motor: Obeys Commands Verbal: Oriented GCS Score: 15 - Psych Psych: Normal mood NIHSS - Time Time: 14:00 - Level of Consciousness Level of consciousness: (0) Alert, Keenly responsive LOC Questions: (0) Answers both Q's correct LOC Commands: (0) Performs both correctly - Gaze Best Gaze: (0) Normal - Visual Visual: (0) No loss - Facial Palsy Facial Palsy: (0) Normal, symmetrical movement - Motor Arms (both separate) Motor Arm (right): (0) No drift Motor Arm (left): (0) No drift - Motor Legs (both separate) Motor Leg (right): (0) No drift Motor Leg (left): (0) No drift - Limb Ataxia Limb Ataxia: (0) Absent - Sensory Sensory: (0) Normal - Best Language Best Language: (0) No aphasia - Dysarthria Dysarthria: (0) Normal - Extinction and Inattention (formally neg Extinction and inattention: (0) No abnormality - Total Score/Results Total Score/Result: 0 Results - Vitals Vitals: Vital Signs - 24 hr 12/16/18 12/16/18 12/16/18 11:30 11:35 13:35 Temperature 36.1 C L Heart Rate 64 77 78 Respiratory 14 18 18 Rate Blood Pressure 160/89 H 150/89 H 142/89 H O2 Saturation 97 98 99 Oxygen O2 Source Room air - EKG (time done) 1423 Rate: Rate (enter#) (54) Rhythm: Sinus bradycardia Ischemia: Normal ST segments Compare to prior EKG: Unchanged from prior EKG (SPT 11-19-18 no sig change ) Computer interpretation: Agree with computer - Labs Labs: Laboratory Tests 12/16/18 12/16/18 12/16/18 11:49 11:49 13:31 WBC 8.4 RBC 3.93 L Hgb 12.5 L Hct 35.9 L MCV 91.3 MCH 31.8 H MCHC 34.8 RDW 12.0 Plt Count 249 MPV 9.6 Neut # (Auto) 4.2 Lymph # (Auto) 2.7 [place] # (Auto) 1.0 Eos # (Auto) 0.4 Baso # (Auto) 0.1 Absolute Nucleated RBC 0.00 Nucleated RBC % 0.0 Sodium 132 L Potassium 4.9 Chloride 98 L Carbon Dioxide 24 Anion Gap 10.0 BUN 16 Creatinine 1.3 H Estimated GFR (MDRD) 54 L Glucose 171 H Calcium 9.0 Total Bilirubin 0.8 AST 35 ALT 30 Alkaline Phosphatase 55 Total Protein 6.8 Albumin 4.2 Globulin 2.6 Albumin/Globulin Ratio 1.6 Lipase 47 Urine Color YELLOW Urine Clarity CLEAR Urine pH 6.5 Ur Specific [place] <=1.005 Urine Protein NEGATIVE Urine Glucose (UA) NEGATIVE Urine Ketones NEGATIVE Urine Occult Blood NEGATIVE Urine Nitrite NEGATIVE Urine Bilirubin NEGATIVE Urine Urobilinogen 0.2 (NORMAL) Ur Leukocyte Esterase NEGATIVE Ur Microscopic Review NOT INDICATED Urine Culture Comments NOT INDICATED - Rads (name of study) CT head without Radiology: Prelim report reviewed (Impression: 1. Generalized age-related cortical atrophic changes without evidence of acute intracranial abnormality. A left putamen Lacunar infarct), EMP read indepedently, See rad report Procedures - IVC sono (time) 1350 Bedside IVC sono: IVC measures (cm) (1.54), Euvolemia PD MEDICAL DECISION MAKING - ED course Complexity details: reviewed old records, reviewed results, re-evaluated patient, considered differential, d/w patient, d/w family ED course: 73-year-old male with repeat recurrent episodes of left-sided numbness and weakness feels this may be related to stress but he gives a history that if he is up walking or doing anything that requires physical exertion his symptoms will recur. I expected to see dehydration on interrogation of the IVC and I did not find this. His volume status appears normal. He has had parts of a TIA work up previously. He has not had echo, bubble study or head angio done. I suspect he has disease and I have asked our hospitalist to evaluate the patient. Departure - Departure Disposition: ED Place in Observation Clinical Impression: TIA (transient ischemic attack) Discharge Date/Time: 12/16/18 16:51
[2018-12-16] MEDS ORDERED: SODIUM CHLORIDE FLUSH 0.9% 10 ML SYRINGE IVP PRN (15:10)
[2018-12-16] MEDS ORDERED: ONDANSETRON 4 MG/2 ML VIAL IVP PRN (15:10)
[2018-12-16] MEDS ORDERED: NITROGLYCERIN SL 0.4 MG TABLET SL PRN (15:21)
--- NOTE | 2018-12-16 15:25 | HISTORY & PHYSICAL EXAMINATION ---
Chief Complaint - Chief Complaint Chief Complaint: left sife numbness History of Present Illness - Admitted From Admitted From:: ER - History of Present Illness HPI Comment/Other: Mr. Gomez is 73-yrs-old male with a PMH significant for HTN, HLD, CKD at stage 3, depression, angina who present ER complain of left side numbness. pt report he began today morning 10 am to have left side numbness. The numbness persisted about 10 min, then came back again. This abnormal sensation on and off remain about 6 times, even until he went to ER. Now his symptoms is resolved. He denies weakness on left side, denies speech problem or other focal neurological deficit. CT of head is unremarkable. Lab test is except creatinine 1.3 as his baseline, unremarkable as well. pt denies headache, vision change, chest pain, fever, chill, shortness of breath. Pt is admitted for TIA workup. History - Past Medical History Cardiovascular: reports: Hypertension, High cholesterol Respiratory: reports: None Neuro: reports: None Endocrine/Autoimmune: reports: HyPOthyroidism GI: reports: None : reports: None HEENT: reports: None Psych: reports: Depression Musculoskeletal: reports: None Derm: reports: None MRSA Hx?: No Other Past Medical History: veins on right side of heart are too small, giving pt angina. - Past Surgical History Ortho: reports: Arthroscopic surgery - Family & Social History Family History Comment/Other: pt is living at [place] with his , had three children. he was a retired teacher. Social History Notes: pt denies tobacco smoking, alcohol and drug issue - POLST Patient has POLST: No Meds/Allgy - Home Medications Home Medications: Ambulatory Orders Medication Instructions Recorded Confirmed Aspirin 81 mg PO DAILY 12/06/17 08/07/18 FLUoxetine [PROzac] 20 mg PO DAILY 12/06/17 08/07/18 Levothyroxine [Synthroid] 75 mcg PO QDAC 12/06/17 08/07/18 Loratadine 10 mg PO DAILY 12/06/17 08/07/18 Metoprolol Tartrate 25 mg PO BID 12/06/17 08/07/18 Saw Chester Fruit [Saw Chester] 550 mg PO DAILY 12/06/17 08/07/18 Simvastatin 40 mg PO QPM 12/06/17 08/07/18 Ubidecarenone [Co Q-10] 200 mg PO DAILY 12/06/17 08/07/18 Cyanocobalamin (Vitamin B-12) 250 mcg PO DAILY 08/06/18 08/07/18 [Vitamin B-12 (100mcg tab)] Diclofenac Sodium [Voltaren] 100 gm TP PRN PRN 08/06/18 08/06/18 Ibuprofen 200 - 400 mg PO TID PRN 08/06/18 08/07/18 Kelp Tablet 1 tab PO DAILY 08/06/18 Losartan [Cozaar] 12.5 mg PO DAILY 08/06/18 08/07/18 Nitroglycerin [Nitrostat] 0.4 mg SL Q5MIN PRN 08/06/18 08/06/18 Omeprazole 20 mg PO DAILY PRN 08/06/18 08/06/18 Tamsulosin [Flomax] 0.4 mg PO DAILY 08/06/18 08/07/18 Nitroglycerin 0.4 mg SL ONCE PRN #20 tab.subl 11/20/18 - Allergies Allergies/Adverse Reactions: Allergies Allergy/AdvReac Type Severity Reaction Status Date / Time lisinopril Allergy cough Verified 12/16/18 11:35 Review of Systems - Constitutional Constitutional: denies: Fatigue, Fever, Chills, Malaise, Weakness, Poor appetite, Diaphoresis, Night sweats - Eyes Eyes: denies: Pain, Irritation, Amaurosis, Blurred vision, Spots in vision, Field loss, Vision loss, Dipolpia - Ears, Nose & Throat Ears, Nose & Throat: denies: Ear pain, Hearing loss, Hearing aids, Tinnitus, Vertigo, Nasal pain, Nasal discharge, Nosebleeds, Nasal obstruction, Nasal congestion, Postnasal drainage, Dentures, Sore throat, Hoarseness, Mouth lesions, Bleeding gums - Cardiovascular Cariovascular: denies: Irregular heart rate, Palpitations, Chest pain, Edema, Lightheadedness, Syncope, Exertional dyspnea, Decr. exercise tolerance - Respiratory Respiratory: denies: Cough, Sputum production, Wheezing, Snoring, Hemoptysis, Orthopnea, SOB at rest, SOB with exertion - Gastrointestinal Gastrointestinal: denies: Abdominal pain, Abdominal distention, Constipation, Diarrhea, Change in bowel habits, Rectal bleeding, Black stools, Bloody stools, Nausea, Vomiting, Bile emesis, Wilner blood emesis, Coffee grounds emesis, Reflux/heartburn - Genitourinary Genitourinary: denies: Dysuria, Frequency, Urgency, Hematuria, Incontinence, Flank pain, Nocturia, Urethral discharge - Musculoskeletal Musculoskeletal: denies: Muscle pain, Back pain, Muscle aches, Stiffness, Limited range of motion, Muscle weakness, Gout, Joint pain - Integumentary Integumentary: denies: Rash, Pruritis, Lesions, Dryness, Lumps, Acne, Pigment changes, Nail changes - Neurological Neurological: reports: Numbness. denies: General weakness, Focal weakness, Headache, Dizziness, Memory problems, Pre-existing deficit, Abnormal gait, Seizures, Incoordination, Slurred speech - Psychiatric Psychiatric: denies: Depression, Anxiety, Suicidal, Delusions, Hallucinations, Homicidal - Endocrine Endocrine: denies: Polyuria, Polydypsia, Polyphagia, Intolerance to cold - Hematologic/Lymphatic Hematologic/Lymphatic: denies: Anemia, Bruising, Petechiae, Blood clots, Lymphadenopathy, Bleeding tendencies Exam - Vital Signs Reviewed Vital Signs: Yes Vital Signs: Vital Signs x48h Temp Pulse Resp BP Pulse Ox 12/16/18 11:30 36.1 C L 64 14 160/89 H 97 - Physical Exam General Appearance: positive: No acute distress, Alert. negative: Lethargic Eyes Bilateral: positive: Normal inspection, PERRL, No lid inflammation, Conjunctivae nml ENT: positive: ENT inspection nml, Pharynx nml, No signs of dehydration. negative: Purulent nasal drainage, Pharyngeal erythema, Oral lesions Neck: positive: Nml inspection, Thyroid nml, No JVD, Trachea midline. negative: Thyromegaly, Lymphadenopathy (R), Lymphadenopathy (L), Stiff neck, Swelling/bruising, Tracheal deviation Respiratory: positive: Chest non-tender, No respiratory distress, Breath sounds nml. negative: Wheezes, Rales, Rhonchi Cardiovascular: positive: Regular rate & rhythm, No murmur, No gallop. negative: Irregularly irregular, Extrasystoles, Tachycardia, Bradycardia, JVD present, Systolic murmur, Diastolic murmur Peripheral Pulses: positive: 2+ Abdomen: positive: Non-tender, No organomegaly, Nml bowel sounds, No distention. negative: Tenderness, Guarding, Rebound Back: positive: Nml inspection. negative: CVA tenderness (R), CVA tenderness (L) Skin: positive: Color nml, No rash, Warm, Dry. negative: Cyanosis, Diaphoresis, Pallor, Skin rash Extremities: positive: Non-tender, Full ROM, Nml appearance. negative: Calf tenderness, Joint swelling, Sandra's sign/cords Neurologic/Psychiatric: positive: Oriented x3, Motor nml, Sensory loss. negative: Sensation nml, Mood/affect nml, Weakness, Facial droop, Slurred/abnml speech, Depressed mood/affect Sepsis Event Note (H) - Evaluation Current Stage of Sepsis: Ruled out Conclusion/Plan - Problem List (1) TIA (transient ischemic attack) Conclusion/Plan: pt report on and off left side numbness only, now it is resolved. he denies other focus neurological deficit. CT of head is unremarkable Will order TIA workup MRI, CTA of neck and head, ECHO Aspirin 325 mg daily reconcile home Statin lipid panel tele and vital monitor (2) HTN (hypertension) Conclusion/Plan: stable, will reconcile, add hydralazine as PRN (3) HLD (hyperlipidemia) Conclusion/Plan: will check lipid panel , reconcile home statin (4) CKD (chronic kidney disease) stage 3, GFR 30-59 ml/min Conclusion/Plan: stable, nearly as his baseline CKD stage 3, hydration one bad of NS (5) Hypothyroidism Conclusion/Plan: will check TSH, reconcile home synthroid (6) Depression Conclusion/Plan: stable, reconcile Prozac (7) Hx of Prinzmetal angina Conclusion/Plan: pt denies chest pain. PRN nitro, tele and vital monitor (8) Do not intubate, cardiopulmonary resuscitation (CPR)-only code status Conclusion/Plan: pt request DNR clearly - Lab Results Fish Bones: 12/16/18 11:49 12/16/18 11:49 Core Measures - Anticipated LOS I expect patient to be DC'd or transferred within 96 hours.: Yes - DVT/VTE - Prophylaxis VTE/DVT Device ordered at admit?: Yes VTE/DVT Prophylaxis med ordered at admit?: Yes
[2018-12-16] MEDS ORDERED: IOVERSOL 320 100 ML VIAL IVP ONE ×2 (15:31→16:10)
[2018-12-16] MEDS ORDERED: SODIUM CHLORIDE 0.9% 1,000 ML IV SCH (16:00)
--- NOTE | 2018-12-16 16:36 | CT Report ---
Reason: TIA Procedure Date: 12/16/2018 Accession Number: [id number] / [id number] Procedure: CT - ANGIO NECK W/WO CPT Code: FULL RESULT: EXAM: CT ANGIOGRAM NECK. EXAM DATE: 12/16/2018 03:50 PM. CLINICAL HISTORY: Transient ischemic attack. COMPARISON: 12/26/2017. TECHNIQUE: Routine axial helical imaging was performed from the skull base through the aortic arch. Reconstructions: Routine multiplanar 3D MIP reconstructions. IV Contrast: 80 mL Optiray 320. Evaluation of arterial stenosis is based on a NASCET method of measurement. In accordance with CT protocol optimization, one or more of the following dose reduction techniques were utilized for this exam: automated exposure control, adjustment of mA and/or KV based on patient size, or use of iterative reconstructive technique. FINDINGS: Stable appearing calcifications at the top of the aortic arch. The great vessel origins are patent. Stable appearing calcifications near the right subclavian artery origin. Stable appearing multifocal atherosclerotic calcifications of the cervical carotid arteries bilaterally but without evidence of acute abnormality or developing hemodynamically significant cervical carotid artery stenosis. Stable appearance of the cervical vertebral arteries, these vessels are patent with a stable mild appearing atherosclerotic origin stenosis bilaterally. IMPRESSION: No evidence for acute abnormality or significant change. Stable atherosclerosis. No acute abnormality or flow limiting stenosis of the cervical, vertebral or carotid arteries. RADIA
--- NOTE | 2018-12-16 16:40 | CT Report ---
Reason: TIA Procedure Date: 12/16/2018 Accession Number: [id number] / [id number] Procedure: CT - ANGIO HEAD W CPT Code: FULL RESULT: EXAM: CT ANGIOGRAM HEAD. CT SCAN OF THE HEAD WITH CONTRAST. EXAM DATE: 12/16/2018 03:50 PM CLINICAL HISTORY: TIA. COMPARISON: HEAD W/O 12/16/2018 12:11 PM BRAIN W/O 12/17/2017 10:24 AM NECK ANGIO 12/26/2017 12:36 PM. TECHNIQUE: - CT Scan Head: Using a multidetector scanner, axial images were acquired from the foramen magnum to the skull vertex following contrast administration. - CT Angiogram: Using a multidetector scanner, high-resolution axial images were acquired from the skull base through vertex following rapid infusion of intravenous contrast. Reformats: Multiplanar MIP reformats were reconstructed. Nascet criteria used for stenosis measurement. IV Contrast: Contrast. In accordance with CT protocol optimization, one or more of the following dose reduction techniques were utilized for this exam: automated exposure control, adjustment of mA and/or KV based on patient size, or use of iterative reconstructive technique. FINDINGS: Head CT: No enhancing abnormality. Ramos white differentiation intact. No mass-effect. Mild ventriculomegaly as before. CT ANGIOGRAM HEAD: RIGHT: Internal Carotid artery: No evidence of dissection. No evidence of aneurysm along the intracranial ICA. Anterior Cerebral Artery: Patent without significant stenosis, aneurysm, or vascular malformation. Middle Cerebral Artery: Patent without significant stenosis, aneurysm, or vascular malformation. Posterior Cerebral Artery: Patent without significant stenosis, aneurysm, or vascular malformation. Vertebral Artery: Patent without significant stenosis. No evidence of dissection. LEFT: Internal Carotid artery: No evidence of dissection. No evidence of aneurysm along the intracranial ICA. Anterior Cerebral Artery: Patent without significant stenosis, aneurysm, or vascular malformation. Middle Cerebral Artery: Patent without significant stenosis, aneurysm, or vascular malformation. Posterior Cerebral Artery: Patent without significant stenosis, aneurysm, or vascular malformation. Vertebral Artery: Patent without significant stenosis. No evidence of dissection. CENTRAL: Basilar Artery: Patent without significant stenosis. No aneurysm. DURAL VENOUS SINUSES AND MAJOR CENTRAL VEINS: Prominent arachnoid granulation and superior sagittal sinus as before. No evidence of sinus thrombosis. IMPRESSION: CT head: No enhancing abnormality. No CT evidence of acute intracranial process. CTA Head: No significant intracranial stenosis. No evidence of aneurysm. RADIA
--- NOTE | 2018-12-16 17:12 | MRI Report ---
Reason: TIA Procedure Date: 12/16/2018 Accession Number: [id number] / [id number] Procedure: MRI - Brain W/O CPT Code: FULL RESULT: EXAM: MRI BRAIN WITHOUT CONTRAST EXAM DATE: 12/16/2018 04:19 PM. CLINICAL HISTORY: Transient ischemic attack. Left side numbness earlier today. COMPARISON: BRAIN W/O 12/17/2017 10:24 AM. TECHNIQUE: Multiplanar, multisequence T1-weighted and fluid-sensitive MR sequences of the brain were performed. Sequences optimized for routine evaluation. Other: None. IV Contrast: None. FINDINGS: Brain Volume: Normal for age. Parenchyma/Dura: No restricted diffusion to suggest an acute or recent ischemic infarct. No cerebral hemorrhage, mass effect, midline shift or abnormal subdural fluid collection. Again seen are findings of mild to moderate multifocal chronic-appearing cerebral white matter disease including multiple scattered chronic lacunar infarcts involving deep and periventricular white matter, similar to findings on the previous study. Ventricles/Cisterns: No hydrocephalus. No abnormal extra-axial fluid collection or hemorrhage. Orbits: Stable appearance. No evidence for mass or proptosis. Sella Turcica: No space-occupying mass. IAC: Symmetric and unremarkable in appearance allowing for the inherent limitations of noncontrast imaging technique. Vasculature: Normal signal flow void is seen in the major arterial structures at the skull base. Sinuses: Minimal to mild potentially chronic multifocal paranasal sinus mucosal thickening without confluent opacification or air-fluid level. IMPRESSION: 1. No MRI evidence for an acute abnormality or significant change. No evidence for an acute stroke or hemorrhage. 2. Stable findings of chronic cerebral white matter disease. RADIA
[2018-12-16] MEDS ORDERED: hydrALAZINE INJ 20 MG/ML VIAL IVP PRN (17:26)
[2018-12-16] MEDS: ASPIRIN 325 MG TABLET PO SCH (18:19)
[2018-12-16] MEDS: SODIUM CHLORIDE FLUSH 0.9% 10 ML SYRINGE IVP SCH ×2 (18:20→23:58)
[2018-12-16] MEDS: FAMOTIDINE 20 MG TABLET PO SCH (20:32)
[2018-12-16] MEDS ORDERED: ATORVASTATIN 40 MG TABLET PO SCH (21:00)
[2018-12-16] MEDS ORDERED: METOPROLOL TARTRATE 25 MG TABLET PO SCH (21:00)
[2018-12-17] MEDS: ACETAMINOPHEN 325 MG TABLET PO PRN ×2 (00:05→04:37)
[2018-12-17 05:03] LABS: BASOPHILS # (AUTO) 0.1 10^3/uL (0.0-0.1); BASOPHILS % (AUTO) 0.7 %; EOSINOPHILS # (AUTO) 0.4 10^3/uL (0.0-0.7); EOSINOPHILS % (AUTO) 4.8 %; HGB - HEMOGLOBIN 12.8 g/dL (14.0-18.0); LYMPHOCYTES # (AUTO) 3.2 10^3/uL (1.5-3.5); LYMPHOCYTES % (AUTO) 39.2 %; MEAN CORPUSCULAR HEMOGLOBIN 31.7 pg (27.0-31.0); MEAN CORPUSCULAR HGB CONC 34.6 g/dL (32.0-36.0); MEAN CORPUSCULAR VOLUME 91.6 fL (80.0-94.0); MEAN PLATELET VOLUME 9.9 fL (7.4-11.4); NEUTROPHILS # (AUTO) 3.5 10^3/uL (1.5-6.6); NEUTROPHILS % (AUTO) 42.9 %; PLT - PLATELET COUNT 254 10^3/uL (130-450); RED BLOOD COUNT 4.04 10^6/uL (4.70-6.10); RED CELL DISTRIBUTION WIDTH 12.2 % (12.0-15.0); WHITE BLOOD COUNT 8.1 x10^3/uL (4.8-10.8)
[2018-12-17 05:08] LABS: CALCIUM 9.1 mg/dL (8.5-10.3); CREATININE 1.2 mg/dL (0.6-1.2); MAGNESIUM 1.9 mg/dL (1.7-2.8)
[2018-12-17 05:16] LABS: CHOL/HDL RATIO 3.5 (<5.0); CHOLESTEROL 159 mg/dL; HDL CHOLESTEROL 45 mg/dL; LDL CHOLESTEROL,CALCULATED 87 mg/dL; LDL/HDL RATIO 1.9 (<3.6); VLDL CHOLESTEROL 27 mg/dL
[2018-12-17] MEDS ORDERED: LEVOTHYROXINE 75 MCG TABLET PO SCH (07:00)
[2018-12-17] MEDS: ASPIRIN 325 MG TABLET PO SCH (08:28)
[2018-12-17] MEDS: FAMOTIDINE 20 MG TABLET PO SCH (08:28)
[2018-12-17] MEDS: SODIUM CHLORIDE FLUSH 0.9% 10 ML SYRINGE IVP SCH (08:31)
[2018-12-17] MEDS ORDERED: POLYETHYLENE GLYCOL 3350 17 GM PACKET PO SCH (09:00)
[2018-12-17] MEDS ORDERED: TAMSULOSIN 0.4 MG CAPSULE PO SCH (09:00)
[2018-12-17] MEDS ORDERED: ENOXAPARIN 40 MG/0.4 ML SYRINGE SUBQ SCH (09:00)
[2018-12-17 09:18] LABS: T4 (THYROXINE) 8.33 ug/dL (6.09-12.23)
[2018-12-17 11:43] VITALS: BP 156/96
--- NOTE | 2018-12-17 11:54 | Discharge Plan ---
Discharge Plan Problem Reviewed?: Yes Disposition: Home, Self Care Condition: Poor Diet: Regular Activity Restrictions: Activity as Tolerated Shower Restrictions: No (fall precaution) Instruction Topics: TIA Health Concerns: all your test are unremarkable. you are stable. Plan of Treatment: followup your PCP as your schedule Care Goals: healthy Assessment: Your MRI, CTA of head, CTA of neck, ECHO all are unremarkable. Additional Instructions or Follow Up instructions: you may followup your PCP in one to two weeks. You are stable, no focus neurological deficit. Should your symptoms return or worsen, you may present ER, call 911 for help No Smoking: If you smoke, Please STOP! Call for help. Follow-up with: Sreekanth Shah DO [Primary Care Provider] -
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
== END 2018-12-17 13:10 | disposition home or self-care (01) ==
LOC: ED 11:27 → MS3 15:10
PROVIDERS: ADMIT Nurse Practitioner Gerontology; ATTEND Nurse Practitioner Gerontology
DX: R20.0 Anesthesia of skin (principal); I12.9 Hypertensive chronic kidney disease with stage 1 through stage 4 chronic kidney disease, or unspecified chronic kidney disease; N18.3 Chronic kidney disease, stage 3 (moderate); E78.5 Hyperlipidemia, unspecified; E03.9 Hypothyroidism, unspecified; F32.9 Major depressive disorder, single episode, unspecified; I20.1 Angina pectoris with documented spasm; I87.1 Compression of vein; Z86.73 Personal history of transient ischemic attack (TIA), and cerebral infarction without residual deficits; Z79.899 Other long term (current) drug therapy; Z63.79 Other stressful life events affecting family and household; Z87.891 Personal history of nicotine dependence; Z79.82 Long term (current) use of aspirin; Z66 Do not resuscitate
CPT/HCPCS: 36415; 70450; 70496; 70498; 70551; 80048; 80053; 80061; 81003; 83690; 83735; 84436; 84439; 84443; 85025; 93005; 93306; 96361; 96372; 96374; 99283; 99284; A9270; G0378; J1650; Q9967; 81001; 83721; 87086

== ENCOUNTER 2019-09-22 16:53 | Outpatient (CLI) | payer MEDICARE, OTHER ==
--- NOTE | 2019-09-22 11:40 | SLEEP CARE CONSULTATION ---
Information from patient questionnaire entered by Lelo Curran. I have reviewed and concur with the information entered by Lelo Curran. This document represents the service I personally performed and the decisions made by me, Salvador Jenkins MD, [facility]. History of Present Illness Previous diagnosis: Mild, Obstructive Sleep Apnea-Hypopnea Syndrome AHI: 5.4 Reason for follow up: annual Equipment type: CPAP Equipment obtained from: [facility] additional information: To minimize the risk of COVID-19 exposure, the patient has requested and consented to this telephone visit. The patient also agrees to having his insurance billed. HPI: Mr. Gomez returned today for follow up of nasal CPAP therapy. He was diagnosed to have mild obstructive sleep apnea-hypopnea syndrome. The patient went to [facility] for the equipment and was fitted with a nasal mask (he does not want to try ResMed N30i mask or Respironics DreamWear nasal cushion mask). He reports using the device nightly and all through the night. The compliance report shows usage in 156 nights out of the past 180 nights, averaging 6.8 hours a night. The > 4 hour compliance rate for the past 180 days is 80%. He complained of nasal congestion but no particular problem with the device such as soreness on the face, dry nose, epistaxis, or headache. He thinks that the pressure of 5 - 10 cmH2O is too low. On the CPAP therapy he notices improvement in his sleep quality, and that he wakes up feeling fresher in the morning and more awake/alert during the day. His notices no snore at all. The average residual AHI is 1.7 (was 2.1); and air leak, 1.9 L/min. The 90th percentile pressure is 9.9 cmH2O. CPAP Compliance Data - Data Reviewed with Patient Average duration of nightly device use: 6H 46M Compliance rate %: 80 Current pressure setting (cmH2O): 5-10 Subjective Initial Bartlett Sleepiness Scale score: 15 Allergies and Home Medications Drug allergies reviewed: Yes Home medication list reviewed: Yes Review of Systems Review of systems same as previous: Yes Physical Exam Height: 5 ft 9 in Impression and Plan IMPRESSION: 1. Obstructive Sleep Apnea-Hypopnea Syndrome, mild, with the patient doing well on nasal CPAP therapy. He has good compliance and significant clinical improvement. The current pressure appears effective and comfortable. Overall, he is very satisfied with treatment and plans to continue with it long- term. He should increase the heated humidifier setting for nasal congestion. For his comfort, I will raise the pressure range to 7 12 cmH2O. PLAN: 1. AutoCPAP increased to 7 - 12 cmH2O. 2. Try to lose weight 3. Return in one year for follow up or earlier if there is any problem with the treatment. Visit Type: Telehealth Phone Location of Provider: Home Patient agrees and consents to this telehealth visit type: Yes Time Spent with Patient (minutes): 10 Provider Statement: I spent 100% of the Telehealth Phone Call with the patient with greater than 50% spent counseling the patient and coordination of care.
== END 2019-09-22 16:54 | disposition home or self-care (01) ==
LOC: SC 16:53
PROVIDERS: ATTEND Internal Medicine Pulmonary Disease
DX: G47.33 Obstructive sleep apnea (adult) (pediatric) (principal)

== ENCOUNTER 2020-04-25 15:32 | Emergency (ER) | payer MEDICARE, OTHER ==
[2020-04-25 15:42] VITALS: BP 170/90
--- NOTE | 2020-04-25 15:43 | ED Physician Documentation ---
PD HPI UPPER EXT INJURY - Stated complaint Stated Complaint: right hand lac - Chief complaint Chief Complaint: Laceration - History obtained from History obtained from: Patient - History of Present Illness Location: Right, Finger (dorsal little finger over PIP joint) Type of injury: Laceration (from table saw) Where injury occurred: Home Timing - onset: Today Timing - details: Abrupt onset, Still present Associated symptoms: No: Weakness, Numbness Similar symptoms before: Has not had sx before Review of Systems Skin: reports: Laceration (s) Neurologic: denies: Focal weakness, Numbness PD PAST MEDICAL HISTORY - Past Medical History Cardiovascular: Hypertension, High cholesterol Respiratory: None Neuro: None Endocrine/Autoimmune: HyPOthyroidism GI: None : None HEENT: None Psych: Depression Musculoskeletal: None Derm: None - Past Surgical History Past Surgical History: Yes Ortho: Arthroscopic surgery - Present Medications Home Medications: Ambulatory Orders Medication Instructions Recorded Confirmed Aspirin 81 mg PO DAILY 12/06/17 12/16/18 FLUoxetine [PROzac] 40 mg PO DAILY 12/06/17 12/16/18 Levothyroxine [Synthroid] 75 mcg PO QDAC 12/06/17 12/16/18 Loratadine 10 mg PO DAILY 12/06/17 12/16/18 Metoprolol Tartrate 50 mg PO BID 12/06/17 12/16/18 Simvastatin 40 mg PO QPM 12/06/17 12/16/18 Ubidecarenone [Co Q-10] 200 mg PO DAILY 12/06/17 12/16/18 Cyanocobalamin (Vitamin B-12) 250 mcg PO DAILY 08/06/18 12/16/18 [Vitamin B-12 (100mcg tab)] Kelp Tablet 1 tab PO DAILY 08/06/18 Nitroglycerin [Nitrostat] 0.4 mg SL Q5MIN PRN 08/06/18 12/16/18 Tamsulosin [Flomax] 0.4 mg PO DAILY 08/06/18 12/16/18 Losartan Potassium 12.5 mg PO DAILY 12/16/18 12/16/18 - Allergies Allergies/Adverse Reactions: Allergies Allergy/AdvReac Type Severity Reaction Status Date / Time lisinopril Allergy cough Verified 04/25/20 15:39 - Social History Does the pt smoke?: No Smoking Status: Former smoker Does the pt drink ETOH?: No Does the pt have substance abuse?: No - Immunizations Immunizations are current?: No Immunizations: TDAP >10years/unknown - POLST Patient has POLST: No PD ED PE NORMAL - Vitals Vital signs reviewed: Yes - General General: Alert and oriented X 3, No acute distress, Well developed/nourished - Extremities Extremities: Other (dorsal littel right finger with 1.5 cm lac over the dorsal aspect just proxinal to PIP joint. [place] snot involve deep structures. No FB.) - Neuro Neuro: No motor deficit, No sensory deficit Results - Vitals Vitals: Vital Signs - 24 hr 04/25/20 15:39 Heart Rate 100 Respiratory 16 Rate Blood Pressure 170/90 H O2 Saturation 98 Oxygen O2 Source Room air Procedures - Laceration (location) right little finger Length in cm: 1.5 Wound type: Linear, Into subcut fat, Clean Neurovascular status: Sensory intact, Motor intact, Vascular intact Anesthesia: Lidocaine 1% with epi Wound Preparation: Wound explored, To the base, Wound edges modified. No: FB identified Skin layer closure: Nylon, Interrupted, Size #-0 - enter number (4), Sutures - enter # (6) Other: Patient tolerated well, No complications, Neurovascular intact, Dressing applied, Tetanus booster given Complexity: Simple Departure - Departure Disposition: 01 Home, Self Care Clinical Impression: Finger laceration Qualifiers: Encounter type: initial encounter Finger: little finger Damage to nail status: without damage Foreign body presence: without foreign body Laterality: right Qualified Code(s): S61.216A - Laceration without foreign body of right little finger without damage to nail, initial encounter Condition: Stable Record reviewed to determine appropriate education?: Yes Instructions: ED Laceration Hand Follow-Up: JERRY ALMANZA MD [Primary Care Provider] - Comments: Tylenol ibuprofen as needed for pains. Light use of the hand initially with progress to normal over several days to a week. My suture care instructions it is okay to wash and shower. Clean off the wound twice a day with soap and water, or peroxide and water. Apply some antibiotic ointment to it to keep it moist. Also to watch for signs of infection such as purulence, redness or increasing pain. Return to your primary care or the ER at the specified time for suture removal. Suture removal 9 or 10 days. Discharge Date/Time: 04/25/20 16:41
[2020-04-25] MEDS ORDERED: ACETAMINOPHEN 325 MG TABLET PO STA (16:32)
[2020-04-25] MEDS ORDERED: TETANUS/DIPHTHERIA/PERTUSSIS 0.5 ML SYRINGE IM ONE (16:32)
== END 2020-04-25 16:41 | disposition home or self-care (01) ==
LOC: ED 15:32
DX: S61.216A Laceration without foreign body of right little finger without damage to nail, initial encounter (principal); W31.2XXA Contact with powered woodworking and forming machines, initial encounter; Y93.89 Activity, other specified; Y92.009 Unspecified place in unspecified non-institutional (private) residence as the place of occurrence of the external cause; Z23 Encounter for immunization; I10 Essential (primary) hypertension; Z87.891 Personal history of nicotine dependence; Z79.82 Long term (current) use of aspirin
CPT/HCPCS: 12001; 90471; 90715; 99282; 99283; A9270; 12011

== ENCOUNTER 2021-09-12 08:31 | Outpatient (CLI) | payer MEDICARE | END 2021-09-12 08:32 | disposition EMS.NT | LOC: EMS 08:31 | DX: R55 Syncope and collapse (principal); R42 Dizziness and giddiness; R53.1 Weakness ==

== ENCOUNTER 2021-09-12 11:03 | Outpatient (CLI) | payer MEDICARE | END 2021-09-12 11:04 | disposition critical access hospital (66) | LOC: EMS 11:03 | DX: R53.1 Weakness (principal); R42 Dizziness and giddiness; I95.1 Orthostatic hypotension; R55 Syncope and collapse | CPT/HCPCS: A0425; A0429 ==

== ENCOUNTER 2021-09-12 11:25 | Emergency (ER) | payer MEDICARE, OTHER ==
[2021-09-12 11:47] LABS: BASOPHILS % (AUTO) 0.3 %; EOSINOPHILS # (AUTO) 0.1 10^3/uL (0.0-0.7); EOSINOPHILS % (AUTO) 0.9 %; HCT - HEMATOCRIT 31.9 % (42.0-52.0); HGB - HEMOGLOBIN 11.3 g/dL (14.0-18.0); LYMPHOCYTES # (AUTO) 2.3 10^3/uL (1.5-3.5); LYMPHOCYTES % (AUTO) 21.6 %; MEAN CORPUSCULAR HEMOGLOBIN 32.7 pg (27.0-31.0); MEAN CORPUSCULAR HGB CONC 35.4 g/dL (32.0-36.0); MEAN CORPUSCULAR VOLUME 92.2 fL (80.0-94.0); MONOCYTES # (AUTO) 0.8 10^3/uL (0.0-1.0); MONOCYTES % (AUTO) 7.7 %; NEUTROPHILS # (AUTO) 7.3 10^3/uL (1.5-6.6); NEUTROPHILS % (AUTO) 69.2 %; PLT - PLATELET COUNT 241 10^3/uL (130-450); RED BLOOD COUNT 3.46 10^6/uL (4.70-6.10); RED CELL DISTRIBUTION WIDTH 12.4 % (12.0-15.0); WHITE BLOOD COUNT 10.6 x10^3/uL (4.8-10.8)
--- NOTE | 2021-09-12 11:55 | XRAY Report ---
PROCEDURE: Chest 1 View X-Ray INDICATIONS: Chest Pain TECHNIQUE: One view of the chest was acquired. COMPARISON: 06/21/2018 FINDINGS: Surgical changes and devices: None. Lungs and pleura: No pleural effusions or pneumothorax. Lungs are clear. Mediastinum: Mediastinal contours appear normal. Heart size is normal. Bones and chest wall: No suspicious bony lesions. Overlying soft tissues appear unremarkable. IMPRESSION: No acute process. Reviewed by: Arlette Moreira MD on 09/12/2021 11:54 AM PDT Approved by: Arlette Moreira MD on 09/12/2021 11:54 AM PDT Station ID: [id number]
[2021-09-12 11:58] LABS: ALBUMIN 3.7 g/dL (3.2-5.5); ALBUMIN/GLOBULIN RATIO 1.4 (1.0-2.2); BILIRUBIN,TOTAL 0.8 mg/dL (0.2-1.0); CALCIUM 9.7 mg/dL (8.5-10.3); CREATININE 1.3 mg/dL (0.6-1.2); POTASSIUM 4.9 mmol/L (3.5-5.0); TOTAL PROTEIN 6.4 g/dL (6.7-8.2)
[2021-09-12] MEDS ORDERED: SODIUM CHLORIDE 0.9% 1,000 ML IV STA (12:53)
--- NOTE | 2021-09-12 12:57 | ED Physician Documentation ---
History of Present Illness - Stated complaint Stated Complaint: DIZZY/WEAKNESS - Chief complaint Chief Complaint: Neuro - History obtained from History obtained from: Patient - Additonal information Additional information: The patient comes to the emergency department with chief complaint of near syncopal episode twice this morning. He states that he did not sleep very well last night and when he got up to go the bathroom this morning, by the time he sat on the toilet, he noticed that he felt very lightheaded. He denies chest pain or shortness of breath. No nausea or vomiting at that time. The patient states he quickly got off the toilet And went back to bed to avoid fainting and collapsing. The patient did not lose consciousness. He states he laid in bed about 5 minutes and then got up and tried to use the toilet again. However, he began to feel lightheaded again and this time, went and laid down and remained there for longer. He states that 30 minutes after the episodes occurred, he vomited twice. He is not sure if this is because he was hungry, since he was not nauseated before. The patient states that now he feels "fine"just tired. He denies fainting before. He states he felt a little bit of a spinning sensation but mostly, felt as though the room was closing in on him. The patient has a history of coronary artery disease and had a stent placed last year. He states that the symptoms leading up to that were chest pain and shortness of breath, and he states he does not have any such symptoms now. The patient is on Plavix, metoprolol, and losartan, as well as levothyroxine. He denies any recent dose changes in his blood pressure medications. No other complaints at this time. Review of Systems Ten Systems: 10 systems reviewed and negative Constitutional: reports: Reviewed and negative Eyes: reports: Reviewed and negative Ears: reports: Reviewed and negative Nose: reports: Reviewed and negative Throat: reports: Reviewed and negative Cardiac: reports: Reviewed and negative Respiratory: reports: Reviewed and negative GI: reports: Reviewed and negative : reports: Reviewed and negative Skin: reports: Reviewed and negative Musculoskeletal: reports: Reviewed and negative Neurologic: reports: Near syncope Psychiatric: reports: Reviewed and negative Endocrine: reports: Reviewed and negative Immunocompromised: reports: Reviewed and negative PD PAST MEDICAL HISTORY - Past Medical History Past Medical History: Yes Cardiovascular: Hypertension, High cholesterol, Coronary artery disease Respiratory: None Neuro: None Endocrine/Autoimmune: HyPOthyroidism GI: GERD : Benign prostate hypertrophy HEENT: None Psych: Depression Musculoskeletal: None Derm: None - Past Surgical History Past Surgical History: Yes General: Appendectomy Ortho: Arthroscopic surgery Cardiovascular: Cardiac catheterization - Present Medications Home Medications: Ambulatory Orders Medication Instructions Recorded Confirmed Aspirin 81 mg PO DAILY 12/06/17 09/12/21 Levothyroxine [Synthroid] 75 mcg PO QDAC 12/06/17 09/12/21 Loratadine 10 mg PO DAILY 12/06/17 09/12/21 Simvastatin 40 mg PO QPM 12/06/17 09/12/21 Cyanocobalamin (Vitamin B-12) 500 mcg PO DAILY 08/06/18 09/12/21 [Vitamin B-12 (100mcg tab)] Kelp Tablet 1 tab PO DAILY 08/06/18 09/12/21 Nitroglycerin [Nitrostat] 0.4 mg SL Q5MIN PRN 08/06/18 09/12/21 Tamsulosin [Flomax] 0.4 mg PO DAILY 08/06/18 09/12/21 Cholecalciferol (Vitamin D3) 50 mcg PO DAILY 09/12/21 09/12/21 [Vitamin D3] Clopidogrel [Plavix] 75 mg PO DAILY 09/12/21 09/12/21 Losartan Potassium [Cozaar] 100 mg PO DAILY 09/12/21 09/12/21 Melatonin 10 mg PO HS 09/12/21 09/12/21 Metoprolol Succinate 100 mg PO BID 09/12/21 09/12/21 Multivitamin [Theragran] 1 each PO DAILY 09/12/21 09/12/21 Nortriptyline [Pamelor] 20 mg ORAL DAILY PM 09/12/21 09/12/21 [place]-3S/Dha/Epa/Fish Oil [[place]-3 1 each PO DAILY 09/12/21 09/12/21 Fish Oil 1,200 mg Sfgl] Pantoprazole [Protonix] 40 mg PO DAILY 09/12/21 09/12/21 Turmeric Root Extract [Turmeric] 1,000 mg PO DAILY 09/12/21 09/12/21 Zinc Gluconate [Zinc] 50 mg PO DAILY 09/12/21 09/12/21 - Allergies Allergies/Adverse Reactions: Allergies Allergy/AdvReac Type Severity Reaction Status Date / Time lisinopril Allergy cough Verified 09/12/21 11:33 - Social History Does the pt smoke?: No Smoking Status: Never smoker Does the pt drink ETOH?: No Does the pt have substance abuse?: No - Immunizations Immunizations are current?: No Immunizations: TDAP >10years/unknown - POLST Patient has POLST: No PD ED PE NORMAL - Vitals Vital signs reviewed: Yes - General General: Alert and oriented X 3, No acute distress, Well developed/nourished - HEENT HEENT: Atraumatic, PERRL, EOMI, Moist mucous membranes - Neck Neck: Supple, no meningeal sign - Cardiac Cardiac: RRR, No murmur, Strong equal pulses - Respiratory Respiratory: No respiratory distress, Clear bilaterally - Abdomen Abdomen: Soft, Non tender, Non distended - Derm Derm: Normal color, Warm and dry, No rash - Extremities Extremities: No deformity, No edema, No calf tenderness / cord - Neuro Neuro: Alert and oriented X 3, 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, Normal speech - Psych Psych: Normal mood, Normal affect Results - Vitals Vitals: Vital Signs - 24 hr 09/12/21 09/12/21 09/12/21 11:33 11:39 14:00 Temperature 36 C L Heart Rate 69 66 78 Respiratory 16 12 18 Rate Blood Pressure 147/71 H 123/105 H 162/98 H O2 Saturation 100 98 98 Oxygen O2 Source Room air - EKG (time done) 1131 Rate: Rate (enter#) (65) Rhythm: NSR [place]: Normal Intervals: Normal [place] QRS: Normal Ischemia: Normal ST segments Compare to prior EKG: Old EKG unavailable Computer interpretation: Agree with computer - Labs Labs: Laboratory Tests 09/12/21 09/12/21 09/12/21 11:39 11:39 11:39 WBC 10.6 RBC 3.46 L Hgb 11.3 L Hct 31.9 L MCV 92.2 MCH 32.7 H MCHC 35.4 RDW 12.4 Plt Count 241 MPV 10.0 Neut # (Auto) 7.3 H Lymph # (Auto) 2.3 [place] # (Auto) 0.8 Eos # (Auto) 0.1 Baso # (Auto) 0.0 Absolute Nucleated RBC 0.00 Nucleated RBC % 0.0 Sodium 134 L Potassium 4.9 Chloride 100 L Carbon Dioxide 28 Anion Gap 6.0 BUN 46 H Creatinine 1.3 H Estimated GFR (MDRD) 54 L Glucose 162 H Calcium 9.7 Total Bilirubin 0.8 AST 29 ALT 33 Alkaline Phosphatase 48 Troponin I High Sens 3.6 Total Protein 6.4 L Albumin 3.7 Globulin 2.7 Albumin/Globulin Ratio 1.4 Lipase 39 PD MEDICAL DECISION MAKING - ED course Complexity details: reviewed results, re-evaluated patient, considered differential, d/w patient ED course: The patient was worked up with labs and EKG. His laboratory studies showed that he was likely somewhat volume contracted, with a mildly elevated creatinine and moderately elevated BUN. Troponin was normal. The patient was given a liter of 0.9 normal saline, After which he was found to be feeling better. He ambulated to and from the bathroom in the ED without difficulty. We have disc ussed that most likely, his near-syncopal episode was multifactorial. We discussed that if he has further episodes like this, he will need to follow-up with his doctor to discuss wearing an event monitor. We discussed the usual indications for return. Departure - Departure Disposition: 01 Home, Self Care Clinical Impression: Near syncope Condition: Stable Instructions: ED Near Syncope Unkn Comments: Your labs, EKG, and chest x-ray look good today. You have been given IV fluids and you are doing well with your walk test here in the emergency department. As we discussed, there are often a number of factors that go into fainting or nearly fainting. It is possible that you were slightly behind on hydration, and this combined with the attenuated response of both your blood vessel diameter and your heart rate when you stand up, due to your blood pressure medications likely contributed to your feeling of near fainting. Not sleeping well and possibly having a viral illness can also contribute To a slowed response of your heart rate and arterial diameter when you stand up, as we have discussed. At this point, there is no evidence of an emergent condition causing your symptoms. Please follow-up with your primary doctor and produce service team member as planned. If you develop any further concerning symptoms, you may return to the emergency department. Discharge Date/Time: 09/12/21 14:50
[2021-09-12 14:40] VITALS: BP 162/98
== END 2021-09-12 14:50 | disposition home or self-care (01) ==
LOC: EDUNIT# → ED 11:25
DX: R55 Syncope and collapse (principal); I10 Essential (primary) hypertension
CPT/HCPCS: 36415; 80053; 83690; 84484; 85025; 93005; 96360; 96361; 99283

== ENCOUNTER 2021-09-13 18:54 | Outpatient (CLI) | payer MEDICARE | END 2021-09-13 18:55 | disposition short-term general hospital (02) | LOC: EMS 18:54 | DX: R55 Syncope and collapse (principal); R07.9 Chest pain, unspecified; R42 Dizziness and giddiness; R20.0 Anesthesia of skin; R11.0 Nausea | CPT/HCPCS: A0425; A0427 ==

== ENCOUNTER 2022-11-14 14:20 | Outpatient (CLI) | payer MEDICARE ==
--- NOTE | 2022-11-14 16:28 | XRAY Report ---
PROCEDURE: Foot 3 View LT INDICATIONS: LEFT FOOT PAIN TECHNIQUE: views of the foot were acquired. COMPARISON: None. FINDINGS: Bones: No fractures or dislocations. No suspicious bony lesions. There is borderline pes cavus de formity with calcaneal pitch of 29 degrees. Soft tissues: No suspicious soft tissue calcifications or masses. Mild calcified peripheral vascul ar disease. IMPRESSION: 1. Borderline pes cavus deformity. 2. Peripheral arterial disease. Reviewed by: Li Ross MD on 11/14/2022 3:26 PM [place] Approved by: Li Ross MD on 11/14/2022 3:26 PM [place] Station ID: [id number]
== END 2022-11-14 14:21 | disposition home or self-care (01) ==
LOC: DI 14:20
PROVIDERS: ATTEND Podiatrist
DX: M21.6X2 Other acquired deformities of left foot (principal); I73.9 Peripheral vascular disease, unspecified